=== PATIENT | female | born 1960 | race Two or more races ===

== ENCOUNTER 2017-02-09 16:55 | Emergency (ER) | payer OTHER ==
[~2017-02-09] VITALS: Ht 154.9 cm; Wt 78.5 kg
[2017-02-09 16:57] VITALS: Ht 154.9 cm; Wt 78.5 kg
[2017-02-09] MEDS ORDERED: morphine 4 MG/ML VIAL IV STA (17:28)
[2017-02-09] MEDS ORDERED: ONDANSETRON 4 MG INJ IV STA (17:28)
[2017-02-09] MEDS ORDERED: SOD CHLORIDE 0.9% 1,000 ML IV STA (17:28)
[2017-02-09 17:42] LABS: URINE BLOOD (Dip) POC Trace-lysed (NEGATIVE)
[2017-02-09 17:46] LABS: ADD SCAN DIFF NO
[2017-02-09 17:48] LABS: BASOPHILS % 0.4 % (0.0-2.0); EOSINOPHILS # 0.1 10^3/ul (0.0-0.5); EOSINOPHILS % 0.9 % (0.0-7.0); HEMATOCRIT 44.1 % (37.0-47.0); HEMOGLOBIN 14.4 g/dl (12.0-16.0); LYMPHOCYTES # 2.4 10^3/ul (0.8-2.9); LYMPHOCYTES % 29.8 % (15.0-51.0); MEAN CORPUSCULAR HEMOGLOBIN 28.5 pg (29.0-33.0); MEAN CORPUSCULAR HGB CONC 32.7 g/dl (32.0-37.0); MEAN CORPUSCULAR VOLUME 87.3 fl (82.0-101.0); MONOCYTE # 0.5 10^3/ul (0.3-0.9); MONOCYTES % 6.7 % (0.0-11.0); NEUTROPHIL # 4.9 10^3/ul (1.6-7.5); NEUTROPHILS % 61.9 % (39.0-77.0); PLATELET COUNT 284 10^3/UL (140-415); RED BLOOD COUNT 5.05 10^6/ul (4.20-5.40); RED CELL DISTRIBUTION WIDTH 12.9 % (11.5-14.5); WHITE BLOOD COUNT 7.9 10^3/ul (4.8-10.8)
[2017-02-09 18:00] LABS: ADD UMIC YES; URINE BILIRUBIN (Dip) NEGATIVE (NEGATIVE); URINE BLOOD (Dip) TRACE (NEGATIVE); URINE COLOR LT. YELLOW (YELLOW); URINE GLUCOSE (Dip) NEGATIVE (NEGATIVE); URINE KETONES (Dip) NEGATIVE (NEGATIVE); URINE LEUKOCYTE ESTERASE (Dip) NEGATIVE (NEGATIVE); URINE NITRITE (Dip) NEGATIVE (NEGATIVE); URINE TOTAL PROTEIN (Dip) NEGATIVE (NEGATIVE); URINE UROBILINOGEN (Dip) 0.2 E.U./dL (0.1-1.0)
--- NOTE | 2017-02-09 18:09 | RADRPT ---
PROCEDURE: CT Abdomen and Pelvis without contrast. CLINICAL INDICATION: Abdominal and pelvic pain. TECHNIQUE: CT scan of the abdomen and pelvis without contrast was performed. Coronal and sagittal reformatted images were obtained from the axial source images. Images were reviewed on a high-resolu [employer] PACS workstation. Total exam DLP is 812.00 mGy-cm. CTDIvol is 15.56 mGy. One or more of the f ollowing dose reduction techniques were used: Automated exposure control, adjustment of the mA and/o r kV according to patient size, use of iterative reconstruction technique. COMPARISON: None. FINDINGS: The lung bases are normal. There is no pleural effusion. The liver is normal in size and attenuation. There is no focal hepatic lesion. The gallbladder and bile ducts are normal. The spleen is normal in size. There is no focal splenic lesion. Both adrenals are normal with no enlargement or mass. The pancreas is unremarkable with no mass or evidence of pancreatitis. There is no renal mass or hydronephrosis. There is no renal calculus or ureteral calculus. The abdominal aorta is not dilated. There is no retroperitoneal lymphadenopathy or mass. There is no pelvic lymphadenopathy or mass. The bladder and distal ureters are normal. The periappendiceal region is unremarkable with no evidence of appendicitis. The appendix is well se en and appears normal. There is a small fat-containing umbilical hernia. There is no herniated bowel. The bowel and mesen zulema are otherwise normal. There is no free fluid or free gas. The osseous structures are unremarkable with no fracture or lytic lesion. IMPRESSION: 1. Small fat-containing umbilical hernia. No herniated bowel. 2. No urinary tract calculus or hydronephrosis. 3. Normal appendix. 4. Otherwise unremarkable CT scan of the abdomen and pelvis. RPTAT: QQ .Vincent Sneed MD, MD Date Time Electronically viewed and signed by .Vincent Sneed MD, on 02/09/2017 18:09 .R/
[2017-02-09 18:17] LABS: ALBUMIN 4.7 g/dl (3.3-4.9)
[2017-02-09 18:18] LABS: POTASSIUM 4.1 mmol/L (3.5-5.1)
[2017-02-09 18:20] LABS: ALBUMIN/GLOBULIN RATIO 1.2; BILIRUBIN,INDIRECT 0.4 mg/dl (0-1.1); BILIRUBIN,TOTAL 0.4 mg/dl (0.2-1.3); CREATININE 0.73 mg/dl (0.44-1.00); TOTAL PROTEIN 8.6 g/dl (6.1-8.1)
[2017-02-09 18:21] LABS: CALCIUM 9.4 mg/dl (8.4-10.2)
[2017-02-09 18:21] LABS: SQUAMOUS EPITHELIAL CELL,UR RARE; URINE RBCS 0-2 /HPF (0)
--- NOTE | 2017-02-09 18:31 | ERD ---
ER Documentation Chief Complaint Date/Time DATE: 02/09/17 TIME: 18:29 Chief Complaint back pain radiates to the front x 2 weeks HPI This is a 56-year-old female presents to the ER with right-sided flank pain that radiates to the right side of her abdomen for the last 2 weeks. Patient does not have any nausea vomiting or diarrhea. Patient states that pain is intermittent and severe it is sharp in quality she rates pain as 10 out of 10. Patient has been taking naproxen which has not worked for her pain and she also tried Coolspring which did not work for her pain. Patient has been to [facility] twice and has gotten lumbar spine x-rays and blood work with urinalysis. Patient was recently treated for a UTI 2 days ago. Patient however denies any urinary frequency or dysuria. She denies any fevers or chills. She denies any hematuria. Patient denies any chest pain or shortness of breath. She denies any pelvic pain or vaginal discharge. ROS 12 point review of systems was done, all negative except per HPI. Medications Home Meds Active Scripts Tramadol HCl (Tramadol HCl) 50 Mg Tablet, 50 MG PO Q4 Y for PAIN, #20 TAB Prov:AV VELASQUEZAIDA Oliver 02/09/17 Reported Medications [None] No Conflict Check 06/30/15 Allergies Allergies: Coded Allergies: No Known Allergy (Unverified , 06/30/15) PMhx/Soc History of Surgery: Yes (BIOPSY L BREAST) Anesthesia Reaction: No Hx Neurological Disorder: No Hx Respiratory Disorders: No Hx Cardiac Disorders: No Hx Psychiatric Problems: No Hx Miscellaneous Medical Probl: No Hx Alcohol Use: No Hx Substance Use: No Hx Tobacco Use: No Physical Exam Vitals Vital Signs Date Time Temp Pulse Resp B/P Pulse Ox O2 Delivery O2 Flow Rate FiO2 02/09/17 16:57 97.9 58 18 186/86 96 Physical Exam GENERAL: The patient is well developed and appropriate for usual state of health , in no apparent distress. HEENT: Atraumatic. CHEST: Clear to auscultation bilaterally. There are no rales, wheezes or rhonchi. HEART: Regular rate and rhythm. No murmurs, clicks, rubs or gallops. ABDOMEN: Soft, nontender and nondistended. Good bowel sounds. No rebound or guarding. No gross peritonitis. No gross organomegaly or masses. No Sol sign or McBurney point tenderness. BACK: No midline or flank tenderness. NEURO: Alert and oriented. Result Diagram: 02/09/17 1740 02/09/17 1740 Results 24 hrs Laboratory Tests Test 02/09/17 17:40 02/09/17 17:43 02/09/17 17:50 White Blood Count 7.910^3/ul Red Blood Count 5.0510^6/ul Hemoglobin 14.4g/dl Hematocrit 44.1% Mean Corpuscular Volume 87.3fl Mean Corpuscular Hemoglobin 28.5pg Mean Corpuscular Hemoglobin Concent 32.7g/dl Red Cell Distribution Width 12.9% Platelet Count 43400^3/UL Mean Platelet Volume 10.0fl Neutrophils % 61.9% Lymphocytes % 29.8% Monocytes % 6.7% Eosinophils % 0.9% Basophils % 0.4% Nucleated Red Blood Cells % 0.0/100WBC Neutrophils # 4.910^3/ul Lymphocytes # 2.410^3/ul Monocytes # 0.510^3/ul Eosinophils # 0.110^3/ul Basophils # 0.010^3/ul Nucleated Red Blood Cells # 0.010^3/ul Sodium Level 142mmol/L Potassium Level 4.1mmol/L Chloride Level 99mmol/L Carbon Dioxide Level 32mmol/L Anion Gap 15 Blood Urea Nitrogen 11mg/dl Creatinine 0.73mg/dl Glucose Level 102mg/dl Calcium Level 9.4mg/dl Total Bilirubin 0.4mg/dl Direct Bilirubin 0.00mg/dl Indirect Bilirubin 0.4mg/dl Aspartate Amino Transf (AST/SGOT) 40IU/L Alanine Aminotransferase (ALT/SGPT) 51IU/L Alkaline Phosphatase 65IU/L Total Protein 8.6g/dl Albumin 4.7g/dl Globulin 3.90g/dl Albumin/Globulin Ratio 1.20 Lipase 82U/L Bedside Urine pH (LAB) 7.0 Bedside Urine Protein (LAB) Negative Bedside Urine Glucose (UA) Negative Bedside Urine Ketones (LAB) Negative Bedside Urine Blood Trace-lysed Bedside Urine Nitrite (LAB) Negative Bedside Urine Leukocyte Esterase (L Negative Urine Color LT. YELLOW Urine Clarity CLEAR Urine pH 6.5 Urine Specific Frederic <=1.005 Urine Ketones NEGATIVE Urine Nitrite NEGATIVE Urine Bilirubin NEGATIVE Urine Urobilinogen 0.2 E.U./dL Urine Leukocyte Esterase NEGATIVE Urine Microscopic RBC 0-2/HPF Urine Microscopic WBC NONE SEEN/HPF Urine Squamous Epithelial Cells RARE Urine Hemoglobin TRACE Urine Glucose NEGATIVE% Urine Total Protein NEGATIVE Current Medications Medications (Trade) Dose Ordered Sig/Maik Route PRN Reason Start Time Stop Time Status Last Admin Dose Admin Sodium Chloride (NS) 1,000 ml @ 1,000 mls/hr Q1H STAT IV 02/09/17 17:28 02/09/17 18:28 DC 02/09/17 17:44 Morphine Sulfate (morphine) 4 mg ONCE STAT IV 02/09/17 17:28 02/09/17 17:29 DC 02/09/17 17:44 Ondansetron HCl (Zofran Inj) 4 mg ONCE STAT IV 02/09/17 17:28 02/09/17 17:29 DC 02/09/17 17:44 Ketorolac Tromethamine (Toradol) 30 mg ONCE STAT IV 02/09/17 19:13 02/09/17 19:14 DC 02/09/17 19:18 Procedures/MDM Differential diagnosis includes but is not limited to; muscle strain, kidney stone, septic kidney stone, pyelonephritis, urinary tract infection, appendicitis, intra-abdominal abscess, AAA, mesenteric ischemia. This is a 56- year-old female presents to the ER with right-sided flank pain. At this time etiology of flank pain is unknown. There is no evidence of nephrolithiasis or septic stone. Suspicion for AAA is low, patient does not have any pulsatile masses. I doubt mesenteric ischemia, pain is out of proportion to physical exam. Patient will be sent home with tramadol. She is to follow-up with primary care doctor within 1-2 days or return to ER sooner if symptoms worsen. My medical decision making was shared with the patient she understands and agrees with plan. Patient's blood pressure was elevated upon triage, upon discharge patient's blood pressure was elevated as well. Patient was given Cardene. She was told to follow-up with her primary care doctor regarding blood pressure. Patient does not have hypertensive emergency or urgency. Departure Diagnosis: Primary Impression: Flank pain Condition: Stable RONAVDEIDRE C February 09, 2017 18:31
[2017-02-09] MEDS ORDERED: TRAM50TA2 PO (18:50)
[2017-02-09] MEDS ORDERED: KETOROLAC 30 MG INJ IV STA (19:13)
[2017-02-09 19:56] VITALS: RESP 16; TEMP 98.5
[2017-02-09] MEDS ORDERED: NICARDipine HCL 30 MG CAPSULE PO ONE (20:00)
[2017-02-09 20:38] VITALS: BP 146/72; PULSE 60
== END 2017-02-09 20:48 | disposition home or self-care (01) ==
LOC: FTE 16:55
DX: R10.9 Unspecified abdominal pain (principal); R10.2 Pelvic and perineal pain
CPT/HCPCS: 36415; 74176; 80053; 81001; 83690; 85025; 96374; 96375; 99285; J1885; J2270; J2405; J7030; 81003